=== PATIENT | male | born 1965 | race Caucasian/White ===

== ENCOUNTER 2016-10-31 02:34 | Inpatient (IN) | payer OTHER ==
[~2016-10-31] VITALS: Ht 172.7 cm; Wt 72.6 kg
--- NOTE | 2016-10-31 02:58 | ED GI/GU/ABDOMINAL COMPLAINT ---
History of Present Illness General Chief Complaint: Abdominal Pain/Flank Pain Stated Complaint: ABD PAIN "BURNING PAIN" Source: patient Exam Limitations: no limitations Vital Signs & Intake/Output Vital Signs & Intake/Output Vital Signs Date Time Temp Pulse Resp B/P B/P Pulse O2 O2 Flow FiO2 Mean Ox Delivery Rate 10/31 0458 97.8 89 18 114/69 96 Room Air 10/31 0250 97.3 68 16 127/82 94 Room Air Room Air Allergies Coded Allergies: No Known Allergies (10/31/16) Reconcile Medications No Known Home Medications Triage Note: 51yo MALE TO TRIAGE W/CO ABD PAIN X 2 D SP EATING AT [place]. TONITE CO "INCREASED BURNING AND BLOATING. DENIES ANY N,V,D Triage Nurses Notes Reviewed? yes Onset: Gradual Duration: hour(s):, getting worse Timing: single episode today Quality/Severity: burning Location: generalized abdomen Radiation: no radiation Activities at Onset: none Modifying Factors: Worsens With: movement, palpation. Associated Symptoms: abdominal pain, nausea/vomiting HPI: 51 yo gentleman presents with several hours of diffuse abdominal discomfort, bloating, nausea, but no vomiting, diarrhea, fever, dysuria, chest pain. He does not recall any suspicious foods. He is otherwise well. Past History Travel History Traveled to [place] past 21 day No Medical History Any Pertinent Medical History? see below for history Surgical History Surgical History: none Psychosocial History What is your primary language [facility] [place] Tobacco Use: Never used Family History Hx Contributory? No Review of Systems Review of Systems Constitutional: Reports: no symptoms. EENTM: Reports: no symptoms. Respiratory: Reports: no symptoms. Cardiovascular: Reports: no symptoms. GI: Reports: no symptoms. Genitourinary: Reports: no symptoms. Musculoskeletal: Reports: no symptoms. Skin: Reports: no symptoms. Neurological/Psychological: Reports: no symptoms. Hematologic/Endocrine: Reports: no symptoms. Immunologic/Allergic: Reports: no symptoms. All Other Systems: Reviewed and Negative Physical Exam Physical Exam General Appearance: well developed/nourished, mild distress, moderate distress Head: atraumatic, normal appearance Eyes: Bilateral: normal appearance. Ears, Nose, Throat, Mouth: hearing grossly normal Neck: normal inspection, supple, full range of motion, normal alignment Respiratory: normal breath sounds Cardiovascular: regular rate/rhythm Gastrointestinal: normal bowel sounds, soft, diminished bowel sounds, with guarding, tender throughout abdomen, but worse in mid epigastrum. Back: normal inspection Extremities: normal range of motion Neurologic/Psych: no motor/sensory deficits, awake, alert, oriented x 3 Skin: intact, normal color, warm/dry Core Measures ACS in differential dx? No Severe Sepsis Present: No Septic Shock Present: No Progress Differential Diagnosis: appendicitis, perforation vs other. Plan of Care: Orders Procedure Date/time Status TROPONIN LEVEL 10/31 250 Complete LIPASE 10/31 250 Complete HEPATIC FUNCTION PANEL 10/31 250 Complete CBC WITHOUT DIFFERENTIAL 10/31 250 Complete BASIC METABOLIC PANEL 10/31 250 Complete AMYLASE 10/31 250 Complete EKG 10/31 250 Active Laboratory Tests 10/31/16 0300: Anion Gap 16, Estimated GFR > 60, BUN/Creatinine Ratio 17.5, Glucose 149 H, Calcium 9.4, Total Bilirubin 1.2, Direct Bilirubin 0.2, AST 18, ALT 44, Alkaline Phosphatase 94, Troponin I < 0.01, Total Protein 7.6, Albumin 4.6, Amylase 50, Lipase 73, CBC w Diff MAN DIFF ORDERED, RBC 5.01, MCV 85.8, MCH 28.3, RDW 13.2, MPV 8.0, Gran % 80.1 H, Lymphocytes % 13.3 L, Monocytes % 5.5, Eosinophils % 0.9, Basophils % 0.2, Absolute Granulocytes 16.0 H, Absolute Lymphocytes 2.6, Absolute Monocytes 1.1 H, Absolute Eosinophils 0.2, Absolute Basophils 0, Platelet Estimate ADEQUATE, Normocytic RBCs VERIFIED, Normochromic RBCs VERIFIED , PUBS MCHC 33.0 Diagnostic Imaging: Viewed by Me: CT Scan. Discussed w/RAD: CT Scan. Radiology Impression: abd/pelvic ct... perforated viscus, perforated ulcer most likely. Initial ED EKG: normal axis, normal intervals, normal p-waves, normal QRS complex, normal sinus rhythm Comments: PATIENT: CAMILA TRAN PRESENT AGE: 51 PATIENT ACCOUNT NO: [id number] : 66 LOCATION: [facility] ORDERING PHYSICIAN: OSIRIS COREY MD SERVICE DATE: 10/31/16 EXAM TYPE: CAT - CT ABD & PELVIS W/O IV CONTRAS EXAMINATION: CT ABDOMEN AND PELVIS WITHOUT CONTRAST CLINICAL INFORMATION: Right lower quadrant pain COMPARISON: None TECHNIQUE: Multidetector volumetric imaging was performed from the superior aspect of the liver through the pubic symphysis. Sagittal and coronal reformatted images were obtained on the technologist's workstation. DLP: 297.07 mGy-cm FINDINGS: LUNG BASES: The visualized lung bases are unremarkable. LIVER, GALLBLADDER, AND BILIARY TREE: Trace perihepatic fluid is noted along with multiple foci of free air. The liver is normal in size, shape, and attenuation. No focal hepatic lesion or biliary ductal dilatation is present. The gallbladder is grossly unremarkable. PANCREAS: Unremarkable. SPLEEN: Unremarkable. ADRENAL GLANDS: Unremarkable. KIDNEYS AND URETERS: The kidneys are normal in size, shape, and attenuation. There is a tiny hyperdense lesion off the lower left kidney, suggestive of a small proteinaceous/hemorrhagic cyst. No hydronephrosis, hydroureter, or calculi seen. No perinephric stranding. BLADDER: Unremarkable. GASTROINTESTINAL TRACT: There are multiple foci of pneumoperitoneum in the central to right upper abdomen, predominantly located adjacent to the liver. In the absence of recent abdominal surgery, appearance is consistent with a perforated viscus. There is suspected wall thickening in the region of the pylorus and proximal duodenum, which could be secondary to underlying inflammation. There is a small volume of free fluid in the pelvis. The small and large bowel otherwise appear unremarkable, without evidence for obstruction. The appendix appears nondilated. ABDOMINAL WALL: No significant hernia is appreciated. LYMPH NODES: No lymphadenopathy is seen, though assessment is somewhat limited in the absence of intravenous contrast. Mesenteric calcifications in the right lower quadrant are of uncertain etiology, potentially reflecting barrett calcifications. VASCULAR: Unremarkable. PELVIC VISCERA: Unremarkable. OSSEOUS STRUCTURES: Unremarkable. IMPRESSION: 1. Pneumoperitoneum in the central and right upper abdomen, consistent with perforated viscus. The adjacent pylorus/duodenum appears somewhat thick walled with surrounding stranding, raising concern for perforated ulcer. 2. Trace perihepatic fluid. This critical result was discussed with OSIRIS COREY on 10/31/2016 4:19 AM, and it was ascertained that the content and urgency of the report was understood at the time of direct communication. DICTATED BY: YOHANA LEWIS MD DATE/TIME DICTATED:10/31/16407 UTILITY AGENT:NELLY DATE/TIME TRANSCRIBED:10/31/16407 CONFIDENTIAL, DO NOT COPY WITHOUT APPROPRIATE AUTHORIZATION. <Electronically signed in Other Vendor System> SIGNED BY: YOHANA LEWIS MD 10/31/16 0425 Departure Departure Disposition: STILL A PATIENT Condition: Stable Clinical Impression Primary Impression: Perforated viscus Referrals: UNKNOWN (PCP/Family) Departure Forms: Customer Survey General Discharge Information Prescriptions: Current Visit Scripts No Known Home Medications Comments 10/31/16, 4:30am.... discussed with [facility] who informs me of perforation... discussed with dr. moore (surgeon) who will accept patient. OR/GI Note Spoke With: MONTSERRAT HERNANDES DO ED Treatment Decision: CAMILA TRAN requires urgent operative management or an emergent procedure that cannot be performed in the Emergency Room setting. pt with perforated viscus, merits or correction Transport To: [facility] Critical Care Note Critical Care Note Critical Care Time: 30-74 min
[2016-10-31 03:25] LABS: ABSOLUTE BASOPHIL COUNT 0 /CUMM (0.0-0.2); ABSOLUTE EOSINOPHIL COUNT 0.2 /CUMM (0.0-0.7); ABSOLUTE LYMPH COUNT 2.6 /CUMM (1.2-3.4); ABSOLUTE MONOCYTE COUNT 1.1 /CUMM (0.10-0.60); BASOPHIL % 0.2 % (0.0-2.0); EOSINOPHIL % 0.9 % (0-5); GRANULOCYTE % 80.1 % (42.2-75.2); MEAN CORPUSCULAR HGB 28.3 PG (27.0-31.0); MEAN CORPUSCULAR VOLUME 85.8 FL (80.0-94.0); PLATELET COUNT 210 /CUMM (130-400); RBC DISTRIBUTION WIDTH 13.2 % (11.5-14.5); RED BLOOD CELL CT 5.01 /CUMM (4.70-6.10); WHITE BLOOD CELL COUNT 19.9 /CUMM (4.8-10.8)
--- NOTE | 2016-10-31 04:25 | CT SCAN REPORT ---
EXAMINATION: CT ABDOMEN AND PELVIS WITHOUT CONTRAST CLINICAL INFORMATION: Right lower quadrant pain COMPARISON: None TECHNIQUE: Multidetector volumetric imaging was performed from the superior aspect of the liver through the pubic symphysis. Sagittal and coronal reformatted images were obtained on the technologist's workstation. DLP: 297.07 mGy-cm FINDINGS: LUNG BASES: The visualized lung bases are unremarkable. LIVER, GALLBLADDER, AND BILIARY TREE: Trace perihepatic fluid is noted along with multiple foci of free air. The liver is normal in size, shape, and attenuation. No focal hepatic lesion or biliary ductal dilatation is present. The gallbladder is grossly unremarkable. PANCREAS: Unremarkable. SPLEEN: Unremarkable. ADRENAL GLANDS: Unremarkable. KIDNEYS AND URETERS: The kidneys are normal in size, shape, and attenuation. There is a tiny hyperdense lesion off the lower left kidney, suggestive of a small proteinaceous/hemorrhagic cyst. No hydronephrosis, hydroureter, or calculi seen. No perinephric stranding. BLADDER: Unremarkable. GASTROINTESTINAL TRACT: There are multiple foci of pneumoperitoneum in the central to right upper abdomen, predominantly located adjacent to the liver. In the absence of recent abdominal surgery, appearance is consistent with a perforated viscus. There is suspected wall thickening in the region of the pylorus and proximal duodenum, which could be secondary to underlying inflammation. There is a small volume of free fluid in the pelvis. The small and large bowel otherwise appear unremarkable, without evidence for obstruction. The appendix appears nondilated. ABDOMINAL WALL: No significant hernia is appreciated. LYMPH NODES: No lymphadenopathy is seen, though assessment is somewhat limited in the absence of intravenous contrast. Mesenteric calcifications in the right lower quadrant are of uncertain etiology, potentially reflecting barrett calcifications. VASCULAR: Unremarkable. PELVIC VISCERA: Unremarkable. OSSEOUS STRUCTURES: Unremarkable. IMPRESSION: 1. Pneumoperitoneum in the central and right upper abdomen, consistent with perforated viscus. The adjacent pylorus/duodenum appears somewhat thick walled with surrounding stranding, raising concern for perforated ulcer. 2. Trace perihepatic fluid. This critical result was discussed with OSIRIS COREY on 10/31/2016 4:19 AM, and it was ascertained that the content and urgency of the report was understood at the time of direct communication.
--- NOTE | 2016-10-31 06:15 | History & Physical Pre-Op ---
KILEY CHAPPELL 10/31/16 0559: General Information and HPI MD Statement: I have seen and personally examined CAMILA TRAN and documented this H&P. The patient is a 51 year old M who presented with a patient stated chief complaint of abdominal pain. Source of Information: patient Exam Limitations: no limitations History of Present Illness: Pt is a 51 yo M, nonsmoker, with no significant medical problems, who presented to the ED last night with c/o progressively worsening abdominal pain x 1 week. Pt states that he had a spicy meal about 6 days ago, which made him feel very bloated and full. He had some pain at the time, but it was mild. Throughout the week, he adjusted his diet, but the pain became progressively worse. Last night, the pain was severe, stabbing 10/10, diffuse with some localization to the right side of the abdomen. He admits to nausea and has a remote hx of heartburn several years ago, but denies fevers, chills, sweating, chest pain, shortness of breath, cough, congestion, vomiting, constipation, diarrhea, dysuria, polyuria, oliguria. He states that he hasn't been able to pass flatus since last night and Last BM was yesterday morning and was normal. Allergies/Medications Allergies: Coded Allergies: No Known Allergies (10/31/16) Home Med list No Known Home Medications Past History Surgical History Pertinent Surgical History: arthroscopy (L knee arthroscopy) Past Family/Social History Psychosocial History Where Do You Live? Home Smoking Status: Never Smoked ETOH Use: denies use Employment History Employment: Employed Review of Systems Review of Systems: Positive for severe abdominal pain and nausea. Negative for fevers, chills, sweating, chest pain, shortness of breath, cough, congestion, heartburn, vomiting, constipation, diarrhea, dysuria, polyuria, oliguria. Exam & Diagnostic Data Last 24 Hrs of Vital Signs/I&O Vital Signs Date Time Temp Pulse Resp B/P B/P Pulse O2 O2 Flow FiO2 Mean Ox Delivery Rate 10/31 0458 97.8 89 18 114/69 96 Room Air 10/31 0250 97.3 68 16 127/82 94 Room Air Room Air Intake & Output 10/31 0800 10/31 0000 10/30 1600 Intake Total 1000 Output Total Balance 1000 Intake, IV 1000 Patient 160 lb Weight Physical Exam: Gen.: Patient is awake and alert. He is in no acute distress, but is noted to be occasionally wincing. Cardiac: Regular Pulmonary: Lungs are clear bilaterally. Abdomen: Somewhat firm and mildly distended. There is tenderness to palpation throughout, but most notable in the right upper quadrant and right mid to lower quadrant. Positive guarding. Positive rebound. No surgical scars, masses, or abdominal wall defects are appreciated. Hypoactive bowel sounds were heard. Extremities: No significant edema or calf tenderness are appreciated. Last 24 Hrs of Labs/Andre: Laboratory Tests 10/31/16 0300: Anion Gap 16, Estimated GFR > 60, BUN/Creatinine Ratio 17.5, Glucose 149 H, Calcium 9.4, Total Bilirubin 1.2, Direct Bilirubin 0.2, AST 18, ALT 44, Alkaline Phosphatase 94, Troponin I < 0.01, Total Protein 7.6, Albumin 4.6, Amylase 50, Lipase 73, CBC w Diff MAN DIFF ORDERED, RBC 5.01, MCV 85.8, MCH 28.3, RDW 13.2, MPV 8.0, Gran % 80.1 H, Lymphocytes % 13.3 L, Monocytes % 5.5, Eosinophils % 0.9, Basophils % 0.2, Absolute Granulocytes 16.0 H, Absolute Lymphocytes 2.6, Absolute Monocytes 1.1 H, Absolute Eosinophils 0.2, Absolute Basophils 0, Platelet Estimate ADEQUATE, Normocytic RBCs VERIFIED, Normochromic RBCs VERIFIED , PUBS MCHC 33.0 Diagnostic Data Other Results CT scan abdomen and pelvis revealed: 1. Pneumoperitoneum in the central and right upper abdomen, consistent with perforated viscus. The adjacent pylorus/duodenum appears somewhat thick walled with surrounding stranding, raising concern for perforated ulcer. 2. Trace perihepatic fluid. Assessment/Plan Assessment/Plan: Patient is a 51-year-old, otherwise healthy male, who presents with severe acute abdominal pain, leukocytosis, and pneumoperitoneum. The most likely source is a perforated duodenal ulcer. Plan: -Given the severity of patient's pain, he will require laparoscopic exploration with washout and possible repair of perforated ulcer. The OR team has been notified. -Nothing by mouth. -IV fluids until OR. -Unasyn 1 was given at 4:30 AM. -Protonix IV 1 now. -Add type and screen to labs. -I discussed the plan with both Dr. Mckinney and the patient, with his son present, and all are in agreement. As Ranked By This Provider Problem List: 1. Perforated viscus CECILIO LAWSMONTSERRAT 10/31/16 1037: Attending MD Review Statement Attending Statement Attending MD Statement: examined this patient, discuss w/resident/PA/MEAT SEAFOOD ASSOCIATE, agreed w/resident/PA/MEAT SEAFOOD ASSOCIATE, discussed with family, reviewed images Attending Assessment/Plan: Patient seen and examined, agree with above. Abdominal pain, acutely severe this AM. CT scan with free air, likely from perforated gastric/duodenal ulcer. Will admit, NPO/IVF, IV Abx, and plan for urgent surgical intervention. Discussed with family, patient, and ED staff.
--- NOTE | 2016-10-31 06:21 | Admission Core Measures ---
Admission Lab Results I reviewed the following labs: Laboratory Tests 10/31 0300 Chemistry Sodium (137 - 145 mmol/L) 141 Potassium (3.5 - 5.1 mmol/L) 3.5 Chloride (98 - 107 mmol/L) 99 Carbon Dioxide (22 - 30 mmol/L) 26 Anion Gap (5 - 16) 16 BUN (9 - 20 mg/dL) 14 Creatinine (0.7 - 1.2 mg/dL) 0.8 Estimated GFR (>60 ml/min) > 60 BUN/Creatinine Ratio (7 - 25 %) 17.5 Glucose (65 - 99 mg/dL) 149 H Calcium (8.4 - 10.2 mg/dL) 9.4 Total Bilirubin (0.2 - 1.3 mg/dL) 1.2 Direct Bilirubin (< 0.4 mg/dL) 0.2 AST (17 - 59 U/L) 18 ALT (21 - 72 U/L) 44 Alkaline Phosphatase (< 127 U/L) 94 Troponin I (<0.11 ng/ml) < 0.01 Total Protein (6.3 - 8.2 g/dL) 7.6 Albumin (3.5 - 5.0 g/dL) 4.6 Amylase (30 - 110 U/L) 50 Lipase (23 - 300 U/L) 73 Hematology CBC w Diff MAN DIFF ORDERED WBC (4.8 - 10.8 /CUMM) 19.9 H RBC (4.70 - 6.10 /CUMM) 5.01 Hgb (14.0 - 18.0 G/DL) 14.2 Hct (42 - 52 %) 43.0 MCV (80.0 - 94.0 FL) 85.8 MCH (27.0 - 31.0 PG) 28.3 RDW (11.5 - 14.5 %) 13.2 Plt Count (130 - 400 /CUMM) 210 MPV (7.4 - 10.4 FL) 8.0 Gran % (42.2 - 75.2 %) 80.1 H Lymphocytes % (20.5 - 51.1 %) 13.3 L Monocytes % (1.7 - 9.3 %) 5.5 Eosinophils % (0 - 5 %) 0.9 Basophils % (0.0 - 2.0 %) 0.2 Absolute Granulocytes (1.4 - 6.5 /CUMM) 16.0 H Absolute Lymphocytes (1.2 - 3.4 /CUMM) 2.6 Absolute Monocytes (0.10 - 0.60 /CUMM) 1.1 H Absolute Eosinophils (0.0 - 0.7 /CUMM) 0.2 Absolute Basophils (0.0 - 0.2 /CUMM) 0 Platelet Estimate (ADEQUATE) ADEQUATE Normocytic RBCs VERIFIED Normochromic RBCs VERIFIED PUBS MCHC (33.0 - 37.0 G/DL) 33.0 Admission Meds I reviewed the following Meds: Current Medications Sig/Shakila Start time Last Medication Dose Stop Time Status Admin Pantoprazole Sodium 40 MG ONCE ONE 10/31 614 UNVr 10/31 (Protonix) 11/01 615 06 Sodium Chloride 1,000 ML BOLUS ONE 10/31 599 AC 10/31 (Normal Saline 0.9%) 10/31 0759 0600 Acute Coronary Syndrome Inclusion Criteria ACS Diagnosis No Inpatient Core Measures LDL Reminder: If No, please order W/I first 24hr of stay Congestive Heart Failure Inclusion Criteria CHF Diagnosis No Cerebrovascular accident Inclusion Criteria CVA/TIA Diagnosis No Inpatient Core Measures Bedside Swallow Eval Reminder: If BSE failed, place ST order Antithrombotic Reminder: Order Antithrombotic Medication by end of day 2 Antithrombotic Reminder: Document Reason Antithrombotic Not ordered by end of day 2 AFIB/Flutter Reminder: If Present, add to problem list AFIB/Flutter Reminder: Order Anticoag Medication for pts with AFIB/Flutter Atherosclerosis Reminder: If Present, add to problem list LDL Reminder: If No, please order W/I first 24hr of stay PT Order Reminder: If No, please order Venous thromboembolism Inpatient Core Measures VTE Risk Factors: Acute medical illness, Age > 40, Surgery No [facility] VTE prophylaxis d/t No contraindications No VTE Pharm Prophylaxis d/t No contraindications Inclusion Criteria - Per Current guidelines, there needs to be overlap - treatment for the first 5 days of Warfarin therapy. - Parenteral Anticoagulation (IV or SC) needs to be - given along with Warfarin therapy. VTE Diagnosis No VTE Type NONE VTE Confirmed by (Test) NONE Problem List As ranked by this Provider includes Assessment & Plan 1. Perforated viscus HOME MEDS Home Med List No Known Home Medications
--- NOTE | 2016-10-31 09:44 | Operative Report ---
Operative/Inv Procedure Report Surgery Date: 10/31/16 Name of Procedure: Diagnostic Laparoscopy, Laparoscopic abdominal wahsout, Laparoscopic repair/ patch (kirti patch) gastroduodenal ulcer Pre-Operative Diagnosis: Perforated bowel Post-Operative Diagnosis: Perforated sandra-pyloric ulcer Estimated Blood Loss: less than 50ml Surgeon/Associate Application Developer: MONTSERRAT VILLALPANDO Anesthesia: general endotracheal tube IV Fluids: 1300 cc Drains: 10 Fr JESSICA RUQ under the liver and over the stomach, 10 Fr RLQ JESSICA into the right gutter/above the liver Specimens: None Complications: None Condition: Stable Operative Indication: This is a 51-year-old male that presented to the emergency room with abdominal pain. Patient states he has been having some upper abdominal pain/burning for the past week or so. Workup in the emergency room revealed free air in the abdominal cavity likely from a perforated viscus. A diagnostic laparoscopy, abdominal washout, laparoscopic repair of perforation, possible laparotomy was discussed in detail. All risks including but not limited to bleeding, infection , injury to surrounding bowel, and possible need for further surgery was discussed in detail. The patient understood everything and decided to proceed. Operative/Procedure Note Note: The patient was brought to the operating room and placed on the operating room table in supine position. Venodyne stockings were placed and adequate general endotracheal anesthesia was obtained. The patient was prepped and draped in standard surgical fashion. A 2 cm transverse incision was made in the infraumbilical crease. Incision was carried down to the fascia, and once the fascia was clearly visualized was picked up between 2 Marilin clamps. The fascia was divided in the midline and once we entered the peritoneum 2 stay 0 Vicryl sutures were placed on each side and a 12 mm blunt port was inserted. The abdominal cavity was insufflated to 15 mmHg. A 10 mm 30 laparoscope was introduced and right away we noted mild to moderate amount of fluid that appeared biliopurulent in the right upper quadrant above the liver. A small amount of omentum was noted adhered to the anterior surface of the peripyloric region. 5 mm ports are placed in the right and left upper quadrant and a 5 mm port in the right lateral position. All the fluid above the liver and in between the liver and the stomach was suctioned out and we began examining the anterior portion of the stomach, no obvious abnormalities were noted. Once we made our way into the peripyloric region a very small amount of bilious fluid was noted leaking from a small perforation on the anterior surface. The perforation itself was approximately 3-5 mm in size. There was already omentum that was partially adhered to this area, partially covering the perforation. Given the small perforation and healthy tissue around the ulcer, the perforation itself was closed using 2-0 Vicryl suture in a [id number] fashion. Following this the omentum was patched over the perforation and tacked down using 2-0 Vicryl suture as well. We examined our area of dissection, no obvious bleeding was noted and no further bile leak was noted. The area of perforation was adequately covered by the omentum. At that point the abdominal cavity was irrigated with approximately 2 L of normal saline in all 4 quadrants until the irrigant was completely clear. A 10 Uzbek JESSICA drain was placed through the right lateral port site into the right gutter and up over the liver. Another 10 Uzbek JESSICA drain was placed through the right upper quadrant port site going under the liver up towards the left upper quadrant laying above the area of repair. All ports were removed under direct visualization, no obvious bleeding was noted. The umbilical trocar site was closed using 0 Vicryl suture. The skin was closed using 4-0 Monocryl. Steri-Strips and dressings were placed. The patient was successfully extubated and transferred to the recovery room in stable condition. The patient tolerated the procedure well with no complications. Findings: RUQ biliopuruent fluid (small amount), small perforation on anterior surface in the sandra-pyloric region
[2016-10-31 11:00] VITALS: BP 128/68
--- NOTE | 2016-10-31 11:53 | PN- General Surgery ---
Subjective Subjective: POST-OP NOTE: Reports sore throat. Pain controlled. No dizziness. No shortness of breath. No chest pains. He hasn't voided yet, but due this afternoon. Objective Vital Signs and I&Os Vital Signs Date Time Temp Pulse Resp B/P B/P Pulse O2 O2 Flow FiO2 Mean Ox Delivery Rate 10/31 1100 98.6 18 18 128/68 93 Room Air Room Air 10/31 0705 98.8 86 18 120/71 95 Room Air 10/31 0458 97.8 89 18 114/69 96 Room Air / 0250 97.3 68 16 127/82 94 Room Air Room Air Intake & Output 10/31 1600 10/31 0800 / 0000 10/30 1600 10/30 0800 10/30 0000 Intake Total 1000 Output Total Balance 1000 Intake, IV 1000 Patient 160 lb 160 lb Weight Weight Reported by Patient Measurement Method Physical Exam: General - alert & oriented. comfortable. no acute distress. Lungs - clear bilaterally. no w/r/r. Cardiac - s1s2. reg. Abdomen - soft. dressings c/d/i. ng tube in place with no output currently in cannister. JESSICA drains with expected serosang drainage (lower JESSICA is around liver edge, higher JESSICA over Wally patch site). expected sandra-incisional tenderness. Extremities - warm bilaterally. no c/c/e. calves soft and nontender b/l. Assessment/Plan Assessment/Plan This 51 year old white male is POD#0 s/p diagnostic laparoscopy, abdominal washout, repair/patch (wally patch) perforated gastroduodenal ulcer currently npo / ivf / ngt continue IV unasyn for intra-abdominal process / infection related to perforated ulcer IV protonix bid - gi ppx / treatment of ulcer hep sc - dvt ppx monitor JESSICA drains x 2 possible swallow study on wednesday eventual GI consult for ulcer related care / treatment will d/w Core Measures/Miscellaneous Venous Thromboembolism VTE Risk Factors: Age > 40, Surgery VTE Contraindications: No Contraindications VTE Diagnosis: No VTE Type: NONE VTE Confirmed by (Test): NONE Beta Lina Is Beta Lina a Home Med? No Antibiotics Is Patient on Antibiotics? Yes If Yes: infection
[2016-10-31 14:50] VITALS: BP 134/84
[2016-10-31 15:28] VITALS: BP 118/76
[2016-10-31 22:36] VITALS: BP 121/76
[2016-11-01 06:55] VITALS: BP 108/76
--- NOTE | 2016-11-01 08:39 | PN- General Surgery ---
See Addendum Subjective Subjective: Patient feeling well, pain has been controlled, only complaint presently is some throat irritation from ngt that responds well to chloraseptic spray. Denies chest pain, shortness of breath and difficulty breathing. Has NGT and is without complaints of nausea but denies belching and hiccuping. No flatus presently, no bm, does not feel urge for either. Objective Vital Signs and I&Os Vital Signs Date Time Temp Pulse Resp B/P B/P Pulse O2 O2 Flow FiO2 Mean Ox Delivery Rate 11/01 0655 98.9 67 20 108/76 94 05/ 2236 98.7 72 18 121/76 94 Room Air 05/ 1528 98.0 65 18 118/76 96 Room Air / 1450 98.7 72 18 134/84 95 Room Air / 1100 98.6 18 18 128/68 93 Room Air Room Air Intake & Output / 1600 05/ 0800 05/07 0000 05/06 1600 05/ 0800 05/06 0000 Intake Total 1200 260 251 4162 Output Total 2500 810 1490 Balance -1300 -435 -990 1000 Intake, IV 1200 522 834 1334 Intake, Oral 0 Output, 50 10 40 Drainage Output, 400 0 Gastric Drainage Output, Urine 2050 800 1450 Patient 160 lb 160 lb Weight Weight Reported by Patient Measurement Method Physical Exam: General: Alert and oriented x3, no acute distress Cardiac: RRR, s1s2 Pulm: CTA bilateraly Abdomen: Non distended, some tenderness with palpation. JESSICA x2. JESSICA #1 placed higher on abdomen with 30 ml of serosanguinous drainage. JESSICA #2, placed lower on abdomen, with 10 cc of serous drainage. Extremities: Moves all extremities, distal sensation intact. Skin warm and well perfused. Bialteral calves soft and non-tender Assessment/Plan Assessment/Plan This is a 51 year old male, POD 1, s/p laparoscopic kirti patch for perforated gastroduodenal ulcer. Patient feeling well today, only complaint is throat discomfort due to ngt. -JESSICA Drains: Will consider d/c drain labeled #2 today (lower in abdomen) -Will continue npo with ngt today, will consider a swallow study tomorrow -Continue unasyn -Continue morphine for pain -Choloraseptic as needed okay for throat discomfort -Continue IV protonix -Will f/u am labs -Will d.yfn Mckinney Core Measures/Miscellaneous Venous Thromboembolism VTE Risk Factors: Age > 40, Surgery VTE Contraindications: No Contraindications VTE Diagnosis: No VTE Type: NONE VTE Confirmed by (Test): NONE Beta Lina Is Beta Lina a Home Med? No Antibiotics Is Patient on Antibiotics? Yes If Yes: infection
[2016-11-01 09:18] LABS: ABSOLUTE BASOPHIL COUNT 0.1 /CUMM (0.0-0.2); ABSOLUTE EOSINOPHIL COUNT 0.1 /CUMM (0.0-0.7); ABSOLUTE GRANULOCYTE CT 10.6 /CUMM (1.4-6.5); ABSOLUTE LYMPH COUNT 1.8 /CUMM (1.2-3.4); ABSOLUTE MONOCYTE COUNT 0.7 /CUMM (0.10-0.60); BASOPHIL % 0.4 % (0.0-2.0); EOSINOPHIL % 0.6 % (0-5); HEMATOCRIT 40.7 % (42-52); MEAN CORPUSCULAR HGB 28.6 PG (27.0-31.0); MEAN CORPUSCULAR HGB CONC 33.2 G/DL (33.0-37.0); MEAN PLATELET VOLUME 8.8 FL (7.4-10.4); PLATELET COUNT 184 /CUMM (130-400); RBC DISTRIBUTION WIDTH 13.9 % (11.5-14.5); RED BLOOD CELL CT 4.73 /CUMM (4.70-6.10); WHITE BLOOD CELL COUNT 13.3 /CUMM (4.8-10.8)
[2016-11-01 14:32] VITALS: BP 132/70
[2016-11-01 22:25] VITALS: BP 122/78
[2016-11-02 06:38] VITALS: BP 116/82
[2016-11-02 07:58] LABS: ABSOLUTE BASOPHIL COUNT 0 /CUMM (0.0-0.2); ABSOLUTE EOSINOPHIL COUNT 0.2 /CUMM (0.0-0.7); ABSOLUTE GRANULOCYTE CT 5.9 /CUMM (1.4-6.5); ABSOLUTE LYMPH COUNT 1.5 /CUMM (1.2-3.4); ABSOLUTE MONOCYTE COUNT 0.8 /CUMM (0.10-0.60); BASOPHIL % 0.3 % (0.0-2.0); EOSINOPHIL % 2.2 % (0-5); GRANULOCYTE % 70.1 % (42.2-75.2); HEMATOCRIT 39.4 % (42-52); MEAN CORPUSCULAR HGB 28.6 PG (27.0-31.0); MEAN CORPUSCULAR HGB CONC 33.5 G/DL (33.0-37.0); MEAN CORPUSCULAR VOLUME 85.5 FL (80.0-94.0); MEAN PLATELET VOLUME 8.2 FL (7.4-10.4); PLATELET COUNT 175 /CUMM (130-400); RBC DISTRIBUTION WIDTH 13.6 % (11.5-14.5); RED BLOOD CELL CT 4.61 /CUMM (4.70-6.10); WHITE BLOOD CELL COUNT 8.4 /CUMM (4.8-10.8)
--- NOTE | 2016-11-02 08:23 | PN- General Surgery ---
See Addendum Subjective Subjective: No overnight events. No abdominal pain. No nausea, vomiting and has no bowel function. No pain issues. Objective Vital Signs and I&Os Vital Signs Date Time Temp Pulse Resp B/P B/P Pulse O2 O2 Flow FiO2 Mean Ox Delivery Rate 11/02 0638 99.1 60 20 116/82 96 11/01 2225 99.3 70 20 122/78 97 Room Air 11/01 1432 98.1 81 20 132/70 93 Room Air Intake & Output 11/02 0000 11/01 1600 11/01 0000 Intake Total 1150 1000 1200 375 Output Total 1410 1075 1040 2500 810 Balance -260 -1075 -40 -1300 -435 Intake, IV 1050 1000 1200 375 Intake, Oral 100 0 Output, 35 40 50 10 Drainage Output, 450 400 Gastric Drainage Output, Urine 925 1075 1000 2050 800 Physical Exam: Operative appears in no distress alert oriented 3 resting in bed comfortably. Lungs clear to auscultate bilaterally no additional sounds or proceeded. Heart reveals regular rate and rhythm. Abdomen is soft nondistended nontender no rebound guarding. Abdominal incisions were clean dry and intact. JESSICA drains thanks to the right side of the abdomen there to suction and has serosanguineous output. Current Medications: Current Medications Sig/Shakila Start time Last Medication Dose Route Stop Time Status Admin Ampicillin Sodium/ 3,000 MG Q6 / 1200 AC 11/02 Sulbactam Sodium IV 0528 Sodium Chloride 100 ML Heparin Sodium 5,000 UNIT Q8 10/31 2200 AC 11/02 (Porcine) VA 0536 Morphine Sulfate 2 MG Q4-6 PRN PRN 10/31 1030 AC 05/ IV 1319 Morphine Sulfate 4 MG Q4-6 PRN PRN / 1030 AC 11/01 IV 0609 Morphine Sulfate 6 MG Q4-6 PRN PRN 10/31 1030 AC IV Pantoprazole Sodium 40 MG BID 10/31 1030 AC 11/01 IV 2108 Phenol 2 SPRAY Q2P PRN / 1030 AC 11/01 EXT 1029 Potassium Chloride 20 MEQ Q8H 10/31 1030 AC 05 Dextrose/Sodium 1,000 ML IV 2259 Chloride Results Last 48 Hours of Labs: Laboratory Tests 11/02 11/01 0620 0625 Chemistry Sodium (137 - 145 mmol/L) 141 142 Potassium (3.5 - 5.1 mmol/L) 4.1 4.1 Chloride (98 - 107 mmol/L) 103 104 Carbon Dioxide (22 - 30 mmol/L) 28 29 Anion Gap (5 - 16) 11 10 BUN (9 - 20 mg/dL) 9 10 Creatinine (0.7 - 1.2 mg/dL) 0.8 0.8 Estimated GFR (>60 ml/min) > 60 > 60 BUN/Creatinine Ratio (7 - 25 %) 11.3 12.5 Magnesium (1.6 - 2.3 mg/dL) 1.8 1.8 Hematology CBC w Diff NO MAN DIFF REQ NO MAN DIFF REQ WBC (4.8 - 10.8 /CUMM) 8.4 13.3 H RBC (4.70 - 6.10 /CUMM) 4.61 L 4.73 Hgb (14.0 - 18.0 G/DL) 13.2 L 13.5 L Hct (42 - 52 %) 39.4 L 40.7 L MCV (80.0 - 94.0 FL) 85.5 86.0 MCH (27.0 - 31.0 PG) 28.6 28.6 RDW (11.5 - 14.5 %) 13.6 13.9 Plt Count (130 - 400 /CUMM) 175 184 MPV (7.4 - 10.4 FL) 8.2 8.8 Gran % (42.2 - 75.2 %) 70.1 80.0 H Lymphocytes % (20.5 - 51.1 %) 18.3 L 13.7 L Monocytes % (1.7 - 9.3 %) 9.1 5.3 Eosinophils % (0 - 5 %) 2.2 0.6 Basophils % (0.0 - 2.0 %) 0.3 0.4 Absolute Granulocytes (1.4 - 6.5 /CUMM) 5.9 10.6 H Absolute Lymphocytes (1.2 - 3.4 /CUMM) 1.5 1.8 Absolute Monocytes (0.10 - 0.60 /CUMM) 0.8 H 0.7 H Absolute Eosinophils (0.0 - 0.7 /CUMM) 0.2 0.1 Absolute Basophils (0.0 - 0.2 /CUMM) 0 0.1 PUBS MCHC (33.0 - 37.0 G/DL) 33.5 33.2 Assessment/Plan Assessment/Plan 51 year old male, s/p laparoscopic kirti patch for perforated gastroduodenal ulcer pod #2 Continues to do well. NG tube remains to contionuous low wall suction. Therefore the plan is to: -Will continue npo and ngt to decompress and will consider a upper GI study on 11/02/16. -Continue abx- unasyn -Continue morphine for pain -Choloraseptic as needed okay for throat discomfort -Continue IV protonix bid. -Encourage oot of bed ,inspiratory spirometery while at bed. Problem List: 1. Perforated viscus Core Measures/Miscellaneous Venous Thromboembolism VTE Risk Factors: Age > 40, Surgery VTE Contraindications: No Contraindications VTE Diagnosis: No VTE Type: NONE VTE Confirmed by (Test): NONE Beta Lina Is Beta Lina a Home Med? No Antibiotics Is Patient on Antibiotics? Yes If Yes: infection
--- NOTE | 2016-11-02 10:06 | RADIOLOGY REPORT ---
EXAMINATION: FL UPPER GI SERIES WITH KUB, GASTROGRAFIN AND BARIUM CLINICAL INFORMATION: Status post repair of perforated gastroduodenal ulcer. Evaluate for leak. Abdominal pain. COMPARISON: CT scan of the abdomen and pelvis dated 10/31/2016. TECHNIQUE: A Gastrografin upper GI series with fluoroscopy and spot imaging was performed. The patient ingested Gastrografin without difficulty and was evaluated in the upright and recumbent positions. Once it was established that no perforation was seen, thin liquid barium was also given. FINDINGS: KUB: There is an enteric tube in place with its tip in the gastric fundus. A left upper quadrant drain is in place. Mild gaseous distention of the colon is noted. Bowel gas pattern is normal. Mild degenerative changes are seen in the lower lumbar spine. Swallowing: Normal. Esophagus: Normal caliber and motility. Gastroesophageal Reflux: None. Stomach: No evidence of gastric contrast extravasation is seen in the pyloric region, where the patient has undergone a gastroduodenal ulcer repair. No evidence of hiatal hernia. Gastric folds are unremarkable. Normal gastric emptying. Duodenum: There is slight narrowing of the first portion of the duodenum, most likely related to spasm. The duodenal C-sweep is otherwise unremarkable. No extravasation of contrast is noted. Other findings: None. FLUOROSCOPY TIME: 2 minutes 17 seconds. NUMBER OF IMAGES: 9 Fluoroscopic runs. IMPRESSION: 1. No evidence of perforation. No contrast extravasation is noted. 2. Slight narrowing of the first portion of the duodenum, most likely related to spasm.
[2016-11-02 14:30] VITALS: BP 118/75
[2016-11-02 14:45] VITALS: BP 111/75
[2016-11-02 22:58] VITALS: BP 118/70
[2016-11-03 05:55] VITALS: BP 120/72
[2016-11-03 08:04] LABS: ABSOLUTE BASOPHIL COUNT 0 /CUMM (0.0-0.2); ABSOLUTE EOSINOPHIL COUNT 0.3 /CUMM (0.0-0.7); ABSOLUTE LYMPH COUNT 1.3 /CUMM (1.2-3.4); ABSOLUTE MONOCYTE COUNT 0.6 /CUMM (0.10-0.60); BASOPHIL % 0.5 % (0.0-2.0); EOSINOPHIL % 4.2 % (0-5); GRANULOCYTE % 68.9 % (42.2-75.2); HEMATOCRIT 38.5 % (42-52); MEAN CORPUSCULAR HGB 28.7 PG (27.0-31.0); MEAN CORPUSCULAR HGB CONC 33.3 G/DL (33.0-37.0); MEAN PLATELET VOLUME 8.1 FL (7.4-10.4); PLATELET COUNT 186 /CUMM (130-400); RBC DISTRIBUTION WIDTH 13.4 % (11.5-14.5); RED BLOOD CELL CT 4.48 /CUMM (4.70-6.10); WHITE BLOOD CELL COUNT 7.2 /CUMM (4.8-10.8)
--- NOTE | 2016-11-03 08:25 | PN- General Surgery ---
See Addendum Subjective Subjective: Tolerating small sips of clears. No appetite. Reports ongoing sore throat. Swallow study yesterday showed slight narrowing of 1st portion of duodenum. He reports passing flatus and a few bms since surgery. Walking well. No dizziness. No shortness of breath. No chest pains. Objective Vital Signs and I&Os Vital Signs Date Time Temp Pulse Resp B/P B/P Pulse O2 O2 Flow FiO2 Mean Ox Delivery Rate 11/03 0555 99.1 67 20 120/72 96 Room Air / 2258 98.7 62 22 118/70 96 Room Air / 1445 99.1 62 20 111/75 97 Room Air / 1430 99.1 62 16 118/75 97 Room Air Intake & Output 11/03 1600 11/03 0800 / 0000 11/02 1600 11/02 0800 / 0000 Intake Total 450 282 080 2239 Output Total 802 538 1187 1325 Balance 450 65 540 -260 -1325 Intake, IV 450 539 976 7824 Intake, Oral 240 40 100 Output, 35 Drainage Output, 450 Gastric Drainage Output, Urine 400 501 730 2598 Patient 160 lb Weight Physical Exam: General - alert & oriented x 3. comfortable. no acuted distress. Lungs - clear bilaterally. no w/r/r. Cardiac - s1s2. reg. Abdomen - soft. JESSICA drain with serous drainage. dressings c/d/i. expected sandra- incisional drainage. ng tube remains in place. Extremities - warm bilaterally. no c/c/e. calves soft and nontender b/l. Assessment/Plan Assessment/Plan This 51 year old male is POD#3 s/p laparoscopic kirti patch for perforated gastroduodenal ulcer tolerating small sips of clears ?remove ng tube continue iv unasyn for intra-abdominal infection / perforated ulcer morphine prn pain protonix bid - dvt ppx no labs ordered today continue oob/ambulation hep sc - dvt ppx monitor JESSICA drain will d/w Core Measures/Miscellaneous Venous Thromboembolism VTE Risk Factors: Age > 40, Surgery VTE Contraindications: No Contraindications VTE Diagnosis: No VTE Type: NONE VTE Confirmed by (Test): NONE Beta Lina Is Beta Lina a Home Med? No Antibiotics Is Patient on Antibiotics? Yes If Yes: infection
[2016-11-03 14:13] VITALS: BP 120/80
[2016-11-03 22:49] VITALS: BP 113/71
[2016-11-04 07:00] VITALS: BP 119/65
--- NOTE | 2016-11-04 07:17 | PN- General Surgery ---
See Addendum Subjective Subjective: Tolerating clears and fulls started last night. NG tube removed yesterday. No nausea. No increased pain. Not requiring pain medication at all. Passing flatus and +bms. Voiding well. Eager for discharge to home. Objective Vital Signs and I&Os Vital Signs Date Time Temp Pulse Resp B/P B/P Pulse O2 O2 Flow FiO2 Mean Ox Delivery Rate 11/04 07 98.0 55 18 119/65 96 Room Air 11/03 2249 98.1 60 18 113/71 93 Room Air 11/03 1413 98.7 70 20 120/80 98 Room Air Intake & Output 11/04 0800 11/04 0000 11/03 1600 11/03 0800 11/03 0000 11/02 1600 Intake Total 380 33 2799 450 465 790 Output Total 400 250 Balance 683 05 4384 450 65 540 Intake, IV 700 10 525 450 225 750 Intake, Oral 700 240 40 Output, Urine 400 250 Patient 160 lb Weight Physical Exam: General - alert & oriented x 3. comfortable. no acute distress. Lungs - clear bilaterally. no w/r/r. Cardiac - s1s2. reg. Abdomen - soft. sandra-incisional tenderness. JESSICA drain with scant serous drainage. Extremities - warm bilaterally. no c/c/e. calves soft and nontender b/l. Current Medications: Current Medications Sig/Shakila Start time Last Medication Dose Route Stop Time Status Admin Ampicillin Sodium/ 3,000 MG Q6 10/31 1200 AC 11/04 Sulbactam Sodium IV 0600 Sodium Chloride 100 ML Heparin Sodium 5,000 UNIT Q8 10/31 2200 AC 11/04 (Porcine) SC 0645 Morphine Sulfate 2 MG Q4-6 PRN PRN 10/31 1030 AC 10/31 IV 1319 Morphine Sulfate 4 MG Q4-6 PRN PRN 10/31 1030 AC 11/01 IV 0609 Morphine Sulfate 6 MG Q4-6 PRN PRN 10/31 1030 IV Pantoprazole Sodium 40 MG BID 10/31 1030 AC 11/03 IV 2157 Phenol 2 SPRAY Q2P PRN 10/31 1030 11/01 EXT 1029 Potassium Chloride 20 MEQ Q8H 10/31 1030 11/04 Dextrose/Sodium 1,000 ML IV 0238 Chloride Results Last 48 Hours of Labs: Laboratory Tests 11/03 0615 Chemistry Sodium (137 - 145 mmol/L) 141 Potassium (3.5 - 5.1 mmol/L) 4.1 Chloride (98 - 107 mmol/L) 104 Carbon Dioxide (22 - 30 mmol/L) 28 Anion Gap (5 - 16) 9 BUN (9 - 20 mg/dL) 14 Creatinine (0.7 - 1.2 mg/dL) 0.8 Estimated GFR (>60 ml/min) > 60 BUN/Creatinine Ratio (7 - 25 %) 17.5 Magnesium (1.6 - 2.3 mg/dL) 1.8 Hematology CBC w Diff NO MAN DIFF REQ WBC (4.8 - 10.8 /CUMM) 7.2 RBC (4.70 - 6.10 /CUMM) 4.48 L Hgb (14.0 - 18.0 G/DL) 12.8 L Hct (42 - 52 %) 38.5 L MCV (80.0 - 94.0 FL) 86.0 MCH (27.0 - 31.0 PG) 28.7 RDW (11.5 - 14.5 %) 13.4 Plt Count (130 - 400 /CUMM) 186 MPV (7.4 - 10.4 FL) 8.1 Gran % (42.2 - 75.2 %) 68.9 Lymphocytes % (20.5 - 51.1 %) 18.0 L Monocytes % (1.7 - 9.3 %) 8.4 Eosinophils % (0 - 5 %) 4.2 Basophils % (0.0 - 2.0 %) 0.5 Absolute Granulocytes (1.4 - 6.5 /CUMM) 5.0 Absolute Lymphocytes (1.2 - 3.4 /CUMM) 1.3 Absolute Monocytes (0.10 - 0.60 /CUMM) 0.6 Absolute Eosinophils (0.0 - 0.7 /CUMM) 0.3 Absolute Basophils (0.0 - 0.2 /CUMM) 0 PUBS MCHC (33.0 - 37.0 G/DL) 33.3 Assessment/Plan Assessment/Plan This 51 year old male is POD#4 s/p laparoscopic kirti patch for perforated gastroduodenal ulcer tolerating clears and fulls continue antibiotics for intra-abdominal infection / perforated ulcer not requiring pain medication continue protonix bid - dvt ppx oob/ambulating well hep sc - dvt ppx ?d/c JESSICA drain ?d/c home today will d/w Core Measures/Miscellaneous Venous Thromboembolism VTE Risk Factors: Age > 40, Surgery VTE Contraindications: No Contraindications VTE Diagnosis: No VTE Type: NONE VTE Confirmed by (Test): NONE Beta Lina Is Beta Lina a Home Med? No Antibiotics Is Patient on Antibiotics? Yes If Yes: infection
--- NOTE | 2016-11-04 07:24 | Patient Discharge Instructions ---
Discharge Instructions General Discharge Information You were seen/treated for: Perforated sandra-pyloric ulcer You had these procedures: Surgery Date: 10/31/16 Name of Procedure: Diagnostic Laparoscopy, Laparoscopic abdominal wahsout, Laparoscopic repair/ patch (kirti patch) gastroduodenal ulcer Watch for these problems: fever>101.3, increased pain, redness/swelling/drainage No bath, but you may shower: Yes Other wound care: ok to remove bandaids. leave white steri strips in place. expect some continued drainage from previous drain site. Diet Continue normal diet: No Recommended Diet: Full Liquids Activity Full Activity/No Limits: No Activity Self Limited: Yes Pounds, do NOT lift more than: 10 Other activity limits: no heavy lifting. no strenuous activity. Acute Coronary Syndrome Inclusion Criteria At DC or during hospital stay patient has or had the following: ACS DIAGNOSIS No Discharge Core Measures Meds if any: Prescribed or Continued at Discharge Meds if any: NOT Prescribed or Continued at Discharge Congestive Heart Failure Inclusion Criteria At DC or during hospital stay patient has or had the following: CHF DIAGNOSIS No Discharge Core Measures Meds if any: Prescribed or Continued at Discharge Meds if any: NOT Prescribed or Continued at Discharge Cerebrovascular accident Inclusion Criteria At DC or during hospital stay patient has or had the following: CVA/TIA Diagnosis No Discharge Core Measures Meds if any: Prescribed or Continued at Discharge Meds if any: NOT Prescribed or Continued at Discharge Venous thromboembolism Inclusion Criteria VTE Diagnosis No VTE Type NONE VTE Confirmed by (Test) NONE Discharge Core Measures - Per Current guidelines, there needs to be overlap - treatment for the first 5 days of Warfarin therapy. - If discharged on Warfarin prior to 5 days of - overlap therapy, the patient will need to be - assessed for post discharge needs including - *Post discharge parental anticoagulation - *Warfarin and/or parental anticoagulation education - *Follow up date to check INR post discharge At least 5 days overlap therapy as Inpatient No Meds if any: Prescribed or Continued at Discharge Note: Overlap Therapy is Warfarin and Anticoagulant Meds if any: NOT Prescribed or Continued at Discharge
[2016-11-04] MEDS ORDERED: AUGMENTIN600 MG/5 M PO (07:30)
[2016-11-04] MEDS ORDERED: PROTONIX40 M3 PO (07:30)
--- NOTE | 2016-11-04 08:07 | Surgical Discharge Summary ---
See Addendum Visit Information Visit Dates Admission Date: 10/31/16 Discharge Date: 11/05/16 History of Present Illness Chief Complaint: abdominal pain, free air Medical History Blood Transfusion Hx: No Neurological: NONE EENT: NONE Cardiovascular: NONE Respiratory: NONE Gastrointestinal: NONE Hepatic: NONE Renal: NONE Musculoskeletal: NONE Psychiatric: NONE Endocrine: NONE Blood Disorders: NONE Cancer(s): NONE RETAIL BUYER/Reproductive: NONE History of MRSA: No History of VRE: No History of CDIFF: No Isolation History: Standard Surgical History Pertinent Surgical History: arthroscopy (L knee arthroscopy) Psychosocial History Where Do You Live? Home Who Do You Live With? Spouse Services at Home: None What is Your Primary Language? Qatari ETOH Use: denies use Review of Systems: see h&p Hospital Course Course Attending Physician: MONTSERRAT HERNANDES DO Primary Care Physician: UNKNOWN Hospital Course: Presented to the ED on 10/31/16 with abdominal pain and was free air. Taken to the OR that day for diagnostic laparoscopy, abdominal washout, repair/patch (kirti patch) gastroduodenal ulcer for perforated sandra-pyloric ulcer. He was kept npo, with an ng tube that was placed during the surgery. Unasyn was started in the ED , and continued throughout his hospitalization. He was also started on iv protonix, dosed twice daily. An upper gi study was done on 11/02/16, which did not show evidence of leak or extravasation. He was started on clears, and slowly advanced then to fulls, and then to a pureed diet to go home with. He had 2 JESSICA drains placed during the surgery, which were both removed prior to his discharge home on 11/05/16. Complications: None Allergies: Coded Allergies: No Known Allergies (10/31/16) Disposition Summary Disposition Principal Diagnosis: Perforated sandra-pyloric ulcer Additional Diagnosis: Surgery Date: 10/31/16 Name of Procedure: Diagnostic Laparoscopy, Laparoscopic abdominal wahsout, Laparoscopic repair/ patch (kirti patch) gastroduodenal ulcer Discharge Disposition: home or self care Discharge Instructions General Discharge Information Code Status: Full Code Patient's Diet: pureed. ulcer-related dietary precautions Patient's Activity: as tolerated. no heavy lifting >10lbs. no strenuous activity. Follow-Up Instructions/Appts: continue 5 more days of augmentin protonix 40 mg twice daily dosing for ulcer treatment will need to follow up with closing coordinator within 4-6 weeks Medications at Discharge Discharge Medications: Start taking the following new medications: Amoxicillin/Potassium Clav (Augmentin Es-600 Suspension) 600 MG-42.9 MG/5 ML SUSP.RECON 7.5 Milliliters ORAL TWICE DAILY Days = 5 No Refills Instructions: may take with clears / fulls Take for a total of 5 days Pantoprazole Sodium (Protonix) 40 MG TABLET.DR 1 Tablet ORAL TWICE DAILY Qty = 60 Refills = 1 Instructions: continue twice daily dose for 6 weeks make an appointment with closing coordinator
[2016-11-04 14:59] VITALS: BP 112/70
[2016-11-04 22:47] VITALS: BP 102/68
[2016-11-05 06:05] VITALS: BP 110/72
[2016-11-05] MEDS ORDERED: AUGMENTIN600 MG/5 M PO (08:57)
--- NOTE | 2016-11-05 09:25 | PN- General Surgery ---
Subjective Subjective: Pt. feels well, tolerating puree diet without problems. Denies pain. Objective Vital Signs and I&Os Vital Signs Date Time Temp Pulse Resp B/P B/P Pulse O2 O2 Flow FiO2 Mean Ox Delivery Rate 11/05 0605 98.0 51 18 110/72 96 Room Air 11/04 2247 98.0 59 19 102/68 96 Room Air 11/04 1459 97.8 70 18 112/70 98 Room Air Intake & Output 11/05 1600 11/05 0800 11/05 0000 11/04 1600 11/04 0800 11/04 0000 Intake Total 2226 193 9444 700 10 Output Total 5 10 1015 Balance 1055 590 330 700 10 Intake, IV 820 600 625 700 10 Intake, Oral 240 720 Number 0 1 Bowel Movements Output, 5 10 15 Drainage Output, Urine 1000 Alert, oriented, no distress, ambulatory Lungs clear COR regular Abdomen soft , non distended.Drain with small amounts of serosang. drainage.Mild ecchymosis at port sites. R sided port site with blister. Otherwise port sites with no erythrema or drainage Extr. without edema. Assessment/Plan Assessment/Plan s/p lap. Grahm patch for perf. duodenal ulcer POD #5 Pt. progressing very well He is tolerating diet Theodore output minmal , will d/c drain. No signs of infection. Plan to d/c home today on PPI as per surgeon request. Core Measures/Miscellaneous Venous Thromboembolism VTE Risk Factors: Age > 40, Surgery VTE Contraindications: No Contraindications VTE Diagnosis: No VTE Type: NONE VTE Confirmed by (Test): NONE Beta Lina Is Beta Lina a Home Med? No Antibiotics Is Patient on Antibiotics? Yes If Yes: infection
== END 2016-11-05 12:42 | DRG 220 ==
LOC: ERH 02:34 → 2NB 07:56 → ERH 07:56 → 2NB 10:00 → PACUH 10:00 → ENRESERV 10:30 → 2NB 10:53 → ENPENDDIS 11-05 09:27 → 2NB 11-05 12:42
PROVIDERS: Nurse Practitioner; Pediatrics; Physician Assistant; Physician Assistant Surgical; ADMIT Surgery
PROC: 0DQ94ZZ Repair Duodenum, Percutaneous Endoscopic Approach (ICD-10-PCS; principal; 2016-10-31)
PROC: 3E1M38Z Irrigation of Peritoneal Cavity using Irrigating Substance, Percutaneous Approach (ICD-10-PCS; 2016-10-31)
PROC: 0DU947Z Supplement Duodenum with Autologous Tissue Substitute, Percutaneous Endoscopic Approach (ICD-10-PCS; 2016-10-31)
DX: K25.1 Acute gastric ulcer with perforation (principal)
CPT/HCPCS: 2NBSP; 74176; 74240; 82436; 93005; 93010; 96361; 96374; 96375; 99291; J0131; J1170; J1644; J2250; J2405; J3010; J7042; S5012